=== PATIENT | male | born 1990 | race Caucasian/White ===

== ENCOUNTER 2020-07-10 17:10 | Inpatient (IN) | payer SELFPAY ==
[~2020-07-10] VITALS: Ht 167 cm; Wt 59.0 kg
[2020-07-10] MEDS ORDERED: cefTRIAXone FOR IV USE 1,000 MG in WATER (STERILE) FOR INJECTION 10 ML IV ONE (17:45)
[2020-07-10] MEDS ORDERED: VANCOMYCIN INJECTION 1,000 MG in NS (IVPB) 250 ML IV ONE (17:45)
[2020-07-10] MEDS ORDERED: KETOROLAC 30 MG/ML VIAL IVP ONE (17:45)
[2020-07-10] MEDS ORDERED: morphine INJ 10 MG/ML 1ML (SYR OR VIAL) IVP STA (17:45)
[2020-07-10] MEDS ORDERED: NS IV 1000 ML 1,000 ML IV SCH (17:45)
[2020-07-10 17:48] LABS: BASOPHILS % (AUTO) 0 % (0-10); EOSINOPHILS # (AUTO) 0.2 10^3/uL (0.0-0.3); EOSINOPHILS % (AUTO) 1 % (0-10); HEMATOCRIT 40 % (40-54); HEMOGLOBIN 13.6 g/dL (13.3-17.7); LYMPHOCYTES # (AUTO) 1.4 10^3/uL (1.0-4.0); LYMPHOCYTES % (AUTO) 12 % (12-44); MEAN CORPUSCULAR HEMOGLOBIN 29 pg (25-34); MEAN CORPUSCULAR HGB CONC 34 g/dL (32-36); MEAN CORPUSCULAR VOLUME 87 fL (80-99); MEAN PLATELET VOLUME 10.7 fL (9.0-12.2); MONOCYTES # (AUTO) 0.7 10^3/uL (0.0-1.0); MONOCYTES % (AUTO) 6 % (0-12); NEUTROPHILS # (AUTO) 9.7 10^3/uL (1.8-7.8); NEUTROPHILS % (AUTO) 81 % (42-75); PLATELET COUNT 150 10^3/uL (130-400); WHITE BLOOD COUNT 12.1 10^3/uL (4.3-11.0)
--- NOTE | 2020-07-10 17:53 | ED Integumentary General ---
General Chief Complaint: Skin/Wound Problems Stated Complaint: CELLULITIS R ARM Source: patient Exam Limitations: no limitations History of Present Illness Date Seen by Provider: Jul 10, 2020 Time Seen by Provider: 17:12 Initial Comments To ER with reports of cellulitis to the right arm. He is an IV drug user (methamphetamine) but states he has not injected at this site. History of hepatitis C. This involves the proximal right forearm. He injects IV metham phetamine. He was seen at [facility] yesterday and admitted on at least vancomycin but he states "they treated me horribly". So he signed out last night. He states that they did an ultrasound looking for any fluid collection and there was no pus. He states that they did a ultrasound to rule out DVT of the arm and he believes that was negative but he is not sure. He does not have a local physician. Timing/Duration: week, getting worse Severity: moderate Associated Symptoms: denies symptoms Allergies and Home Medications Allergies Coded Allergies: No Known Drug Allergies (Unverified , 07/10/20) Patient Home Medication List Home Medication List Reviewed: Yes Review of Systems Review of Systems Constitutional: see HPI, chills EENTM: see HPI Respiratory: no symptoms reported Cardiovascular: no symptoms reported Genitourinary: no symptoms reported Musculoskeletal: no symptoms reported Skin: no symptoms reported Psychiatric/Neurological: No Symptoms Reported Endocrine: No Symptoms Reported Physical Exam Vital Signs Capillary Refill : General Appearance: WD/WN, no apparent distress HEENT: PERRL/EOMI, normal ENT inspection Cardiovascular: no murmur, tachycardia (Rate of 120) Respiratory: no respiratory distress, no accessory muscle use Neurologic/Psychiatric: alert, normal mood/affect Skin: normal color, warm/dry Skin Problem Location: upper extremities Skin Problem Character: erythema, other (Erythema of the vulvar and proximal aspect of the forearm. Quite a bit of cellulitis here no fluctuance. the entire forearm is swollen but only the volar aspect is erythematous.) Progress/Results/Core Measures Results/Orders Lab Results Laboratory Tests Test 07/10/20 17:35 Range/Units White Blood Count 12.1 H 4.3-11.0 10^3/uL Red Blood Count 4.62 4.30-5.52 10^6/uL Hemoglobin 13.6 13.3-17.7 g/dL Hematocrit 40 40-54 % Mean Corpuscular Volume 87 80-99 fL Mean Corpuscular Hemoglobin 29 25-34 pg Mean Corpuscular Hemoglobin Concent 34 32-36 g/dL Red Cell Distribution Width 11.9 10.0-14.5 % Platelet Count 150 130-400 10^3/uL Mean Platelet Volume 10.7 9.0-12.2 fL Immature Granulocyte % (Auto) 1 % Neutrophils (%) (Auto) 81 H 42-75 % Lymphocytes (%) (Auto) 12 12-44 % Monocytes (%) (Auto) 6 0-12 % Eosinophils (%) (Auto) 1 0-10 % Basophils (%) (Auto) 0 0-10 % Neutrophils # (Auto) 9.7 H 1.8-7.8 10^3/uL Lymphocytes # (Auto) 1.4 1.0-4.0 10^3/uL Monocytes # (Auto) 0.7 0.0-1.0 10^3/uL Eosinophils # (Auto) 0.2 0.0-0.3 10^3/uL Basophils # (Auto) 0.0 0.0-0.1 10^3/uL Immature Granulocyte # (Auto) 0.1 0.0-0.1 10^3/uL Prothrombin Time 12.8 12.2-14.7 SEC INR Comment 0.9 0.8-1.4 Sodium Level 136 135-145 MMOL/L Potassium Level 3.4 L 3.6-5.0 MMOL/L Chloride Level 101 98-107 MMOL/L Carbon Dioxide Level 26 21-32 MMOL/L Anion Gap 9 5-14 MMOL/L Blood Urea Nitrogen 5 L 7-18 MG/DL Creatinine 0.81 0.60-1.30 MG/DL Estimat Glomerular Filtration Rate > 60 BUN/Creatinine Ratio 6 Glucose Level 116 H 70-105 MG/DL Calcium Level 8.9 8.5-10.1 MG/DL Corrected Calcium 9.0 8.5-10.1 MG/DL Total Bilirubin 0.9 0.1-1.0 MG/DL Aspartate Amino Transf (AST/SGOT) 23 5-34 U/L Alanine Aminotransferase (ALT/SGPT) 49 0-55 U/L Alkaline Phosphatase 49 40-136 U/L Total Protein 7.2 6.4-8.2 GM/DL Albumin 3.9 3.2-4.5 GM/DL My Orders Orders - MERLE KILPATRICK APRN Cbc With Automated Diff (07/10/20 17:33) Comprehensive Metabolic Panel (07/10/20 17:33) Protime With Inr (07/10/20 17:33) Blood Culture (07/10/20 17:33) Lactic Acid Analyzer (07/10/20 17:33) Ns Iv 1000 Ml (Sodium Chloride 0.9%) (07/10/20 17:45) Ceftriaxone For Iv Use (Rocephin For I (07/10/20 17:45) Vancomycin Injection (Vancomycin Injecti (07/10/20 17:45) Ketorolac Injection (Toradol Injection) (07/10/20 17:45) Morphine Injection (Morphine Injection (07/10/20 17:45) Magnesium (07/10/20 18:20) Medications Given in ED Current Medications Medications Dose Ordered Sig/Roberth Route Start Time Stop Time Status Last Admin Dose Admin Ketorolac Tromethamine 15 mg ONCE ONCE IVP 07/10/20 17:45 07/10/20 17:46 DC 07/10/20 17:50 15 MG Departure Communication (Admissions) I spoke with Dr. Jamison, we will admit on Rocephin and vancomycin and consult surgery. Impression Primary Impression: Cellulitis of right arm Disposition: ADMITTED INPATIENT Condition: Stable Admissions Decision to Admit Reason: Admit from ER (General) Decision to Admit/Date: Jul 10, 2020 Time/Decision to Admit Time: 18:21 Departure-Patient Inst. Referrals: NO,LOCAL PHYSICIAN (PCP/Family) Primary Care Physician MERLE KILPATRICK APRN Jul 10, 2020 17:53
[2020-07-10 18:06] LABS: ALBUMIN 3.9 GM/DL (3.2-4.5)
[2020-07-10 18:07] LABS: CHLORIDE 101 MMOL/L (98-107); POTASSIUM 3.4 MMOL/L (3.6-5.0); SODIUM 136 MMOL/L (135-145)
[2020-07-10 18:08] LABS: CALCIUM 8.9 MG/DL (8.5-10.1)
[2020-07-10 18:09] LABS: GLUCOSE 116 MG/DL (70-105); INR 0.9 (0.8-1.4); PROTHROMBIN TIME PATIENT 12.8 SEC (12.2-14.7); TOTAL PROTEIN 7.2 GM/DL (6.4-8.2)
[2020-07-10 18:10] LABS: CARBON DIOXIDE 26 MMOL/L (21-32)
[2020-07-10 18:11] LABS: BILIRUBIN,TOTAL 0.9 MG/DL (0.1-1.0)
[2020-07-10 18:12] LABS: ALKALINE PHOSPHATASE 49 U/L (40-136)
[2020-07-10 18:13] LABS: CREATININE SERUM 0.81 MG/DL (0.60-1.30); GFR ESTIMATED > 60
[2020-07-10 18:14] LABS: BUN/CREATININE RATIO 6
[2020-07-10 18:16] LABS: ALANINE AMINOTRANSFERASE 49 U/L (0-55)
[2020-07-10 19:30] VITALS: BP 119/72
--- NOTE | 2020-07-10 19:51 | Consultation - Surgery ---
History of Present Illness History of Present Illness Patient Consulted On(josselyn/time) 07/10/20 19:45 Time Seen by Provider: 18:52 History of Present Illness Surgery asked to consult regarding right arm cellulitis r/o abscess. HPI per ED: To ER with reports of cellulitis to the right arm. He is an IV drug user (methamphetamine) but states he has not injected at this site. History of hepatitis C. This involves the proximal right forearm. He injects IV methamphetamine. He was seen at [facility] yesterday and admitted on at least vancomycin but he states "they treated me horribly". So he signed out last night. He states that they did an ultrasound looking for any fluid collection and there was no pus. He states that they did a ultrasound to rule out DVT of the arm and he believes that was negative but he is not sure. He does not have a local physician. Timing/Duration: week, getting worse Severity: moderate Associated Symptoms: denies symptoms When I spoke to pt he states the same thing happned to his hand (also right arm); "came up as a pimple and then turned into MRSA". He thinks "the knot on my arm is bigger than yesterday". Rating the pain as a 5 out of 10, sharp and radiating up and down the arm. Allergies and Home Medications Allergies Coded Allergies: No Known Drug Allergies (Unverified , 07/10/20) Patient Home Medication List Home Medication List Reviewed: Yes Past Eiasmem-Ubqhnp-Txcgeh Hx Patient Social History Drug of Choice: METH IV Smoking Status: Current Everyday Smoker Type Used: Electronic/Vapor Recent Hopitalizations: Yes ([place] LAST NIGHT) Surgeries History of Surgeries: Yes Surgeries: Appendectomy Respiratory History of Respiratory Disorde: No Cardiovascular History of Cardiac Disorders: No Neurological History of Neurological Disord: No Genitourinary History of Genitourinary Disor: No Gastrointestinal History of Gastrointestinal Di: No Musculoskeletal History of Musculoskeletal Dis: No Endocrine History of Endocrine Disorders: No HEENT History of HEENT Disorders: No Cancer History of Cancer: No Psychosocial History of Psychiatric Problem: No Integumentary History of Skin or Integumenta: Yes (MRSA) Blood Transfusions History of Blood Disorders: No Family Medical History Significant Family History: Heart Disease (Mother's side), Cancer (Brain and Lung) Review of Systems-General Constitutional: No chills, No diaphoresis; fever EENTM: No blurred vision, No double vision, No mouth pain, No mouth swelling, No epistaxis Respiratory: No cough, No dyspnea on exertion, No short of breath Cardiovascular: No chest pain, No edema, No palpitations Gastrointestinal: No abdominal pain, No jaundice, No nausea, No vomiting Genitourinary: No dysuria, No frequency, No hematuria Musculoskeletal: joint pain, joint swelling, muscle pain, muscle stiffness, muscle cramps Skin: change in color, other (hx of MRSA right hand) Psychiatric/Neurological: Denies Anxiety, Denies Depressed, Denies Seizure, Denies Tremors Other Pt denies any hx of abnormal bleeding or bruising Physical Exam-General Problems Physical Exam Vital Signs Vital Signs - First Documented 07/10/20 17:19 Temp 37.2 Pulse 122 Resp 20 B/P (MAP) 142/95 (111) Pulse Ox 97 O2 Delivery Room Air Capillary Refill : Less Than 3 Seconds General Appearance: WD/WN, no apparent distress Eyes: Bilateral Eye PERRL, Bilateral Eye EOMI HEENT: pharynx normal; No scleral icterus (R), No scleral icterus (L), No pale conjunctivae (R), No pale conjunctivae (L) Neck: full range of motion, supple, normal inspection Respiratory: chest non-tender, lungs clear, normal breath sounds, no respiratory distress, no accessory muscle use Cardiovascular: no murmur, tachycardia Gastrointestinal: normal bowel sounds, non tender, soft, no organomegaly, no pulsatile mass Rectal: deferred Back: no CVA tenderness, no vertebral tenderness Extremities: no pedal edema, no calf tenderness, normal capillary refill, other (RUE has large area of swelling and erythema; starting below AC fossa and going above, no fluctuance) Neurologic/Psychiatric: dry chain puller II-XII nml as tested, alert, normal mood/affect, oriented x 3 Skin: normal color (except RUE), warm/dry, tattoos/piercings Lymphatic: no adenopathy (neck, supraclavicular, groin), axilla node tender (R) Data Review Labs Laboratory Tests 07/10/20 17:35: White Blood Count 12.1H, Red Blood Count 4.62, Hemoglobin 13.6, Hematocrit 40, Mean Corpuscular Volume 87, Mean Corpuscular Hemoglobin 29, Mean Corpuscular Hemoglobin Concent 34, Red Cell Distribution Width 11.9, Platelet Count 150, Mean Platelet Volume 10.7, Immature Granulocyte % (Auto) 1, Neutrophils (%) (Auto) 81H, Lymphocytes (%) (Auto) 12, Monocytes (%) (Auto) 6, Eosinophils (%) (Auto) 1, Basophils (%) (Auto) 0, Neutrophils # (Auto) 9.7H, Lymphocytes # (Auto) 1.4, Monocytes # (Auto) 0.7, Eosinophils # (Auto) 0.2, Basophils # (Auto) 0.0, Immature Granulocyte # (Auto) 0.1, Prothrombin Time 12.8, INR Comment 0.9, Sodium Level 136, Potassium Level 3.4L, Chloride Level 101, Carbon Dioxide Level 26, Anion Gap 9, Blood Urea Nitrogen 5L, Creatinine 0.81, Estimat Glomerular Filtration Rate > 60, BUN/Creatinine Ratio 6, Glucose Level 116H, Lactic Acid Level 1.09, Calcium Level 8.9, Corrected Calcium 9.0, Magnesium Level 1.7, Total Bilirubin 0.9, Aspartate Amino Transf (AST/SGOT) 23, Alanine Aminotransferase (ALT/SGPT) 49, Alkaline Phosphatase 49, Total Protein 7.2, Albumin 3.9 Assessment/Plan Assessment/Plan Assessment/Plan Cellulitis vs. Abscess Hx of MRSA IVDA Pt needs IV ABX, pain control and monitor Right arm; will order CT of RUE for tomorrow morning to reasses. Pt may need to go to the OR for I&D with packing and debridement. DILSHAD ENRIQUEZ DO Jul 10, 2020 19:51
[2020-07-10] MEDS: NS IV 1000 ML 1,000 ML IV SCH (20:41)
[2020-07-10] MEDS: ENOXAPARIN 40 MG/0.4 ML (LOVENOX) SYR SC SCH (20:41)
[2020-07-10] MEDS: morphine INJ 4 MG/ML 1 ML (VIAL/SYRINGE) IVP PRN (20:42)
[2020-07-10 23:22] VITALS: BP 120/71
[2020-07-11] MEDS: morphine INJ 4 MG/ML 1 ML (VIAL/SYRINGE) IVP PRN ×4 (03:59→20:58)
[2020-07-11] MEDS: ACETAMINOPHEN 325 MG TABLET PO PRN ×2 (04:02→16:24)
[2020-07-11 04:03] VITALS: BP 122/84
[2020-07-11] MEDS ORDERED: NS (IVPB) 250 ML ONE (04:30)
[2020-07-11] MEDS ORDERED: VANCOMYCIN 750 MG/VIAL IV ONE (04:30)
[2020-07-11 04:57] LABS: BASOPHILS % (AUTO) 0 % (0-10); EOSINOPHILS # (AUTO) 0.2 10^3/uL (0.0-0.3); EOSINOPHILS % (AUTO) 2 % (0-10); HEMATOCRIT 37 % (40-54); LYMPHOCYTES # (AUTO) 1.6 10^3/uL (1.0-4.0); LYMPHOCYTES % (AUTO) 16 % (12-44); MEAN CORPUSCULAR HEMOGLOBIN 29 pg (25-34); MEAN CORPUSCULAR HGB CONC 33 g/dL (32-36); MEAN CORPUSCULAR VOLUME 88 fL (80-99); MEAN PLATELET VOLUME 10.8 fL (9.0-12.2); MONOCYTES # (AUTO) 0.7 10^3/uL (0.0-1.0); MONOCYTES % (AUTO) 7 % (0-12); NEUTROPHILS # (AUTO) 7.9 10^3/uL (1.8-7.8); NEUTROPHILS % (AUTO) 75 % (42-75); PLATELET COUNT 146 10^3/uL (130-400); WHITE BLOOD COUNT 10.5 10^3/uL (4.3-11.0)
[2020-07-11 05:13] LABS: CHLORIDE 104 MMOL/L (98-107); POTASSIUM 3.9 MMOL/L (3.6-5.0); SODIUM 135 MMOL/L (135-145)
[2020-07-11 05:15] LABS: GLUCOSE 102 MG/DL (70-105)
[2020-07-11 05:17] LABS: CARBON DIOXIDE 22 MMOL/L (21-32)
[2020-07-11 05:19] LABS: CREATININE SERUM 0.75 MG/DL (0.60-1.30); GFR ESTIMATED > 60
[2020-07-11 05:20] LABS: BUN/CREATININE RATIO 9
[2020-07-11] MEDS: VANCOMYCIN 750 MG/NS 250 ML IVPB IV SCH ×4 (06:10→18:20)
[2020-07-11] MEDS: NS IV 1000 ML 1,000 ML IV SCH ×3 (06:25→20:58)
[2020-07-11] MEDS: KCL 20 MEQ TAB (K-DUR) PO SCH (06:25)
[2020-07-11 07:53] VITALS: BP 119/83
[2020-07-11] MEDS ORDERED: CATHETER FLUSH 10 ML SYR IV PRN (08:15)
[2020-07-11] MEDS ORDERED: NS 100 ML (IVPB) BAG IV ONE (08:15)
[2020-07-11] MEDS ORDERED: HOLD METFORMIN - RECEIVED CONTRAST 20 ML VIAL IV SCH (08:15)
[2020-07-11] MEDS ORDERED: IOHEXOL 350 MG/ML 100 ML (OMNIPAQUE 350) VIAL IV ONE (08:15)
--- NOTE | 2020-07-11 09:41 | Diagnostic Imaging Report ---
PROCEDURE: CT right upper extremity with contrast. TECHNIQUE: Axial images were obtained through the right upper extremity after intravenous contrast and reformatted into coronal and sagittal oblique planes. Auto Exposure Controls were utilized during the CT exam to meet ALARA standards for radiation dose reduction. INDICATION: Right elbow region, cellulitis There is diffuse subcutaneous edema which is most pronounced along the medial aspect of the upper arm and elbow with extension into the forearm. There is heterogeneous density which may represent developing phlegmon within the antecubital fossa. This region measures approximately 4.9 x 3.8 x 8 cm. No well-defined walled fluid collection is identified. There appears to be thrombosis of the antecubital vein in this region. There may be mild edema and/or inflammation in the adjacent musculature. No bone destruction is identified. There is no definite elbow joint fluid present. IMPRESSION: Probable thrombophlebitis and associated cellulitis in the antecubital fossa. There is likely associated myositis as well however no walled fluid collection is seen for drainage. There may be developing phlegmon with thrombosis of the involved antecubital vein. No osteomyelitis or joint effusion is seen. Dictated by: Dictated on workstation # [id number]
--- NOTE | 2020-07-11 10:12 | Progress Note - Surgery ---
ANGELITO ABDULLAHI MED STUDENT 07/11/20 1012: Subjective Date Seen by a Provider: Jul 11, 2020 Time Seen by a Provider: 07:55 Subjective/Events-last exam Patient is awake and sitting up in bed this morning. States that R arm hurts, about 7 or 8, describes as throbbing, no radiation. He has not had anything to eat, no nausea or vomiting. LBM yesterday. Was taken to CT, showed no walled fluid filled structure to drain. States he does have a headache and fever this morning. Wants to know if something will be done with his arm today. Erythema has receded since yesterday Review of Systems General: Chills, Malaise HEENT: Head Aches; No Visual Changes Pulmonary: No Dyspnea, No Cough Cardiovascular: No: Chest Pain, Palpitations Gastrointestinal: No: Nausea, Vomiting, Abdominal Pain, Diarrhea, Constipation Genitourinary: No Dysuria, No Hematuria Musculoskeletal: arm pain (RUE); No: leg pain Focused Exam Lactate Level 07/10/20 17:35: Lactic Acid Level 1.09 Objective Exam Vital Signs Date Time Temp Pulse Resp B/P (MAP) Pulse Ox O2 Delivery O2 Flow Rate FiO2 07/11/20 07:53 36.7 92 20 119/83 (95) 98 Room Air 07/11/20 04:30 37.2 07/11/20 04:03 37.8 110 20 122/84 (97) 99 Room Air 07/11/20 04:02 37.8 07/10/20 23:22 37.0 99 20 120/71 (87) 97 Room Air 07/10/20 19:30 Room Air 07/10/20 19:30 36.8 100 22 119/72 (88) 97 Room Air 07/10/20 18:50 100 18 132/88 97 07/10/20 17:19 37.2 122 20 142/95 (111) 97 Room Air I & O 07/11/20 07:00 Intake Total 3417.5 ml Output Total 0 ml Balance 3417.5 ml Capillary Refill : Less Than 3 Seconds General Appearance: No Apparent Distress Respiratory: Chest Non Tender, Lungs Clear, Normal Breath Sounds, No Accessory Muscle Use, No Respiratory Distress Cardiovascular: Regular Rate, Rhythm, No Edema, No Murmur Peripheral Pulses: 2+ Radial Pulses (R), 2+ Radial Pulses (L) Gastrointestinal: normal bowel sounds, non tender, soft Extremity: No Calf Tenderness, No Pedal Edema, Other (RUE erythematous and swollen in antecubital region, receding, very tender to touch) Neurologic/Psychiatric: Alert, Oriented x3 Skin: Normal Color, Warm/Dry Results Lab Laboratory Tests 07/10/20 17:35: White Blood Count 12.1H, Red Blood Count 4.62, Hemoglobin 13.6, Hematocrit 40, Mean Corpuscular Volume 87, Mean Corpuscular Hemoglobin 29, Mean Corpuscular Hemoglobin Concent 34, Red Cell Distribution Width 11.9, Platelet Count 150, Mean Platelet Volume 10.7, Immature Granulocyte % (Auto) 1, Neutrophils (%) (Auto) 81H, Lymphocytes (%) (Auto) 12, Monocytes (%) (Auto) 6, Eosinophils (%) (Auto) 1, Basophils (%) (Auto) 0, Neutrophils # (Auto) 9.7H, Lymphocytes # (Auto) 1.4, Monocytes # (Auto) 0.7, Eosinophils # (Auto) 0.2, Basophils # (Auto) 0.0, Immature Granulocyte # (Auto) 0.1, Prothrombin Time 12.8, INR Comment 0.9, Sodium Level 136, Potassium Level 3.4L, Chloride Level 101, Carbon Dioxide Level 26, Anion Gap 9, Blood Urea Nitrogen 5L, Creatinine 0.81, Estimat Glomerular Filtration Rate > 60, BUN/Creatinine Ratio 6, Glucose Level 116H, Lactic Acid Level 1.09, Calcium Level 8.9, Corrected Calcium 9.0, Magnesium Level 1.7, Total Bilirubin 0.9, Aspartate Amino Transf (AST/SGOT) 23, Alanine Aminotransferase (ALT/SGPT) 49, Alkaline Phosphatase 49, Total Protein 7.2, Albumin 3.9 07/11/20 04:35: White Blood Count 10.5, Red Blood Count 4.15L, Hemoglobin 12.0L, Hematocrit 37L, Mean Corpuscular Volume 88, Mean Corpuscular Hemoglobin 29, Mean Corpuscular Hemoglobin Concent 33, Red Cell Distribution Width 11.8, Platelet Count 146, Mean Platelet Volume 10.8, Immature Granulocyte % (Auto) 1, Neutrophils (%) (Auto) 75, Lymphocytes (%) (Auto) 16, Monocytes (%) (Auto) 7, Eosinophils (%) (Auto) 2, Basophils (%) (Auto) 0, Neutrophils # (Auto) 7.9H, Lymphocytes # (Auto) 1.6, Monocytes # (Auto) 0.7, Eosinophils # (Auto) 0.2, Basophils # (Auto) 0.0, Immature Granulocyte # (Auto) 0.1, Sodium Level 135, Potassium Level 3.9, Chloride Level 104, Carbon Dioxide Level 22, Anion Gap 9, Blood Urea Nitrogen 7, Creatinine 0.75, Estimat Glomerular Filtration Rate > 60, BUN/Creatinine Ratio 9, Glucose Level 102, Calcium Level 8.0L Assessment/Plan Assessment/Plan Assessment/Plan Cellulitis vs. Abscess -CT shows no walled abcess, Erythema receding -No need to take to OR -Continue ABX, pain medications, Keep area clean -Continue to watch for signs of worsening infection or cyst -Leukocytosis improved today Hx of MRSA IVDA NITO COWAN DO 07/11/20 1442: Subjective Time Seen by a Provider: 12:25 Subjective/Events-last exam Pt seen and examined, states he thinks pain is a little better but not much. Review of Systems General: Chills, Malaise HEENT: Head Aches; No Visual Changes Pulmonary: No Dyspnea, No Cough Cardiovascular: No: Chest Pain, Palpitations Gastrointestinal: No: Nausea, Vomiting, Abdominal Pain, Diarrhea, Constipation Musculoskeletal: arm pain (RUE) Objective Exam General Appearance: No Apparent Distress, WD/WN Respiratory: Chest Non Tender, Lungs Clear, Normal Breath Sounds, No Accessory Muscle Use, No Respiratory Distress Cardiovascular: Regular Rate, Rhythm, No Murmur Peripheral Pulses: 2+ Radial Pulses (R), 2+ Radial Pulses (L) Gastrointestinal: normal bowel sounds, non tender, soft Extremity: No Calf Tenderness, No Pedal Edema, Other (RUE erythematous and swollen in antecubital region, receding, very tender to touch. R arm twice the size of lef) Assessment/Plan Assessment/Plan Assessment/Plan Cellulitis vs. Abscess -CT shows no walled abcess, Erythema receding -No need at this time to take to OR, no definitive abscess -Continue ABX, pain medications, Keep area clean, elevate arm -Continue to watch for signs of worsening infection -Leukocytosis improved today Hx of MRSA IVDA Supervisory-Addendum Brief Verification & Attestation Participated in pt care: history, MDM, physical Personally performed: exam, history, MDM Care discussed with: Medical Student Procedures: n/a Verification and Attestation of Medical Student E/M Service A medical student performed and documented this service. I then reviewed and verified all information documented by the medical student and made modifications to such information, when appropriate. I personally performed a physical exam, medical decision making and then discussed any differences between the notes and made revisions as necessary to create one note. Nito Cowan , 07/11/20 , 14:42 ANGELITO ABDULLAHI MED STUDENT Jul 11, 2020 10:12 NITO COWAN DO Jul 11, 2020 14:42
[2020-07-11 11:52] VITALS: BP 122/76
--- NOTE | 2020-07-11 13:16 | History & Physical-Hospitalist ---
History of Present Illness HPI/Chief Complaint Pt is a 30yoCM with a PMH of Hepatits C, IV meth use and recurrent MRSA infection who presented to the ER due to right arm infection. He states he was in [place] recently and left AMA because they treated him "horribly" and his infection continued to worsen prompting him to seek evaluation here. He states he still has pain in his right arm and feels terrible. He also complains about a headache that he has had for 4 days. He normally drinks a lot of pop but hasn't had any. Denies any cuts, bug bite, or other sources of infection when specifically asked but when asking about MRSA decolinizatino process he discloses that he got a tattoo his arm just under the area of erythema and infection 2 days prior to this starting. Source: patient Date Seen 07/11/20 Time Seen by a Provider: 13:11 Attending Physician Dino Wheatley MD PCP No,Local Physician Referring Physician Date of Admission Jul 10, 2020 at 18:21 Home Medications & Allergies Home Medications Reviewed patient Home Medication Reconciliation performed by pharmacy medication reconciliations air traffic systems technician and/or nursing. Patients Allergies have been reviewed. Allergies Allergies Coded Allergies No Known Drug Allergies (Unverified07/10/20) Past Tzuauhd-Bvcmnj-Cflqga Hx Past Med/Social Hx: Reviewed Nursing Past Med/Soc Hx Patient Social History Alcohol Use: Rarely Uses Recreational Drug Use: Yes Drug of Choice: METH IV Smoking Status: Current Everyday Smoker Type Used: Electronic/Vapor Recent Foreign Travel: No Contact w/other who traveled: No Recent Hopitalizations: Yes ([place] LAST NIGHT) Recent Infectious Disease Expo: No Past Medical History Surgeries: Appendectomy Gastrointestinal: Hepatitis (Hepatitis C) History of Blood Disorders: No Family History Reviewed Nursing Family Hx Heart Disease (Mother's side), Cancer (Brain and Lung) Review of Systems Constitutional: fever EENTM: no symptoms reported Respiratory: No cough, No short of breath Cardiovascular: No chest pain, No palpitations Gastrointestinal: No abdominal pain, No nausea, No vomiting Genitourinary: no symptoms reported Musculoskeletal: see HPI Skin: see HPI Psychiatric/Neurological: Headache; Denies Numbness, Denies Paresthesia, Denies Tingling, Denies Weakness Physical Exam Physical Exam Vital Signs Vital Signs - First Documented 07/10/20 17:19 Temp 37.2 Pulse 122 Resp 20 B/P (MAP) 142/95 (111) Pulse Ox 97 O2 Delivery Room Air Capillary Refill : Less Than 3 Seconds Height, Weight, BMI Height: '" Weight: lbs. oz. kg; 21.15 BMI Method: General Appearance: No Apparent Distress, WD/WN, Other (SO laying in bed with patient) HEENT: PERRL/EOMI, Moist Mucous Membranes; No Scleral Icterus (L), No Scleral Icterus (R) Results Results/Procedures Labs Laboratory Tests 07/10/20 17:35 07/11/20 04:35 Patient resulted labs reviewed. Imaging: Reviewed Imaging Report Imaging [facility], [place] NAME: NOAH LEE III [facility] REC#: [id number] PT STATUS: ADM IN : 1990 PHYSICIAN: DILSHAD ENRIQUEZ DO ADMIT DATE: 07/10/20 Signed Date of Exam:07/11/20 CT EXTREMITY UPPER RIGHT W PROCEDURE: CT right upper extremity with contrast. TECHNIQUE: Axial images were obtained through the right upper extremity after intravenous contrast and reformatted into coronal and sagittal oblique planes. Auto Exposure Controls were utilized during the CT exam to meet ALARA standards for radiation dose reduction. INDICATION: Right elbow region, cellulitis There is diffuse subcutaneous edema which is most pronounced along the medial aspect of the upper arm and elbow with extension into the forearm. There is heterogeneous density which may represent developing phlegmon within the antecubital fossa. This region measures approximately 4.9 x 3.8 x 8 cm. No well-defined walled fluid collection is identified. There appears to be thrombosis of the antecubital vein in this region. There may be mild edema and/or inflammation in the adjacent musculature. No bone destruction is identified. There is no definite elbow joint fluid present. IMPRESSION: Probable thrombophlebitis and associated cellulitis in the antecubital fossa. There is likely associated myositis as well however no walled fluid collection is seen for drainage. There may be developing phlegmon with thrombosis of the involved antecubital vein. No osteomyelitis or joint effusion is seen. Dictated by: Dictated on workstation # [id number] Dict: 07/11/20 0930 Trans: 07/11/20 1004 CVB [id number] Interpreted by: KAUSHIK SERNA MD Electronically signed by: KAUSHIK SERNA MD 07/11/20 1004 Assessment/Plan Admission Diagnosis Cellulitis Admission Status: Inpatient Order (span 2 midnights) Reason for Inpatient Admission: see below Assessment and Plan Sepsis, POA Cellulitis Tachycardiac with leukocytosis in ER Leukocytosis resolved this AM Continue on IV abx Surgery consulted, appreciate recs No abscess since on imaging Has sensation and good pulse in right wrist, no current evidence of compartment syndrome IV meth use Hepatitis C Recommend cessation Will need outpatient hepatology follow up Headache Excedrin prn as likely due to caffeine withdrawal DINO WHEATLEY MD Jul 11, 2020 13:16
[2020-07-11 16:00] VITALS: BP 110/68
[2020-07-11] MEDS: LACTOBACILLUS ACIDOPHILUS (PROBIOTIC) CAPSULE PO SCH (16:23)
[2020-07-11] MEDS: cefTRIAXone 1,000 MG/SWFI 10 ML IV PUSH IV SCH ×2 (16:25)
[2020-07-11] MEDS: IBUPROFEN 600 MG (MOTRIN) TAB PO PRN (19:30)
[2020-07-11 20:24] VITALS: BP 111/82
[2020-07-11] MEDS: ENOXAPARIN 40 MG/0.4 ML (LOVENOX) SYR SC SCH (20:58)
[2020-07-11 23:21] VITALS: BP 119/71
[2020-07-12 03:41] VITALS: BP 115/74
[2020-07-12] MEDS: NS IV 1000 ML 1,000 ML IV SCH ×3 (04:45→21:03)
[2020-07-12] MEDS: morphine INJ 4 MG/ML 1 ML (VIAL/SYRINGE) IVP PRN ×5 (04:46→21:03)
[2020-07-12] MEDS ORDERED: TROUGH ORDER-PHARMACY XX NR (05:00)
[2020-07-12] MEDS ORDERED: VANCOMYCIN 1000 MG/VIAL ONE (05:55)
[2020-07-12] MEDS ORDERED: NS (IVPB) 250 ML ONE (05:55)
[2020-07-12] MEDS ORDERED: VANCOMYCIN 1 GM/NS 250 ML IVPB IV SCH ×2 (06:00)
[2020-07-12] MEDS: KCL 20 MEQ TAB (K-DUR) PO SCH (06:06)
[2020-07-12 08:07] VITALS: BP 101/68
[2020-07-12] MEDS: LACTOBACILLUS ACIDOPHILUS (PROBIOTIC) CAPSULE PO SCH ×3 (08:09→17:52)
--- NOTE | 2020-07-12 09:12 | Progress Note - Surgery ---
ANGELITO ABDULLAHI MED STUDENT 07/12/20 0912: Subjective Date Seen by a Provider: Jul 12, 2020 Time Seen by a Provider: 07:15 Subjective/Events-last exam Patient is awake and sitting up in bed. States the pain in his arm is a bit worse today. Rates about a 9, throbbing, starting to radiate up the arm a bit. Swelling seems to have gotten a bit worse. Erythema doesn't really look like it has receded any since yesterday, although WBC is down. States he had a bit of a fever last night but that's a little better this morning. No nausea or vomiting. LBM was last night. Ambulating with no difficulty. Review of Systems General: Chills (Last night, subsided mostly this morning), Malaise HEENT: No Head Aches, No Visual Changes Pulmonary: No Dyspnea, No Cough Cardiovascular: No: Chest Pain, Palpitations Gastrointestinal: No: Nausea, Vomiting, Abdominal Pain Genitourinary: No Dysuria, No Hematuria Musculoskeletal: arm pain (R arm, little bit worse than yesterday) Focused Exam Lactate Level 07/10/20 17:35: Lactic Acid Level 1.09 Objective Exam Vital Signs Date Time Temp Pulse Resp B/P (MAP) Pulse Ox O2 Delivery O2 Flow Rate FiO2 07/12/20 08:07 36.7 94 18 101/68 (79) 99 Room Air 07/12/20 08:00 Room Air 07/12/20 03:41 35.9 91 16 115/74 (88) 98 Room Air 07/11/20 23:21 36.2 82 16 119/71 (87) 98 Room Air 07/11/20 20:27 Room Air 07/11/20 20:24 36.1 78 20 111/82 (92) 97 Room Air 07/11/20 16:54 37.9 07/11/20 16:24 38.2 07/11/20 16:00 38.2 101 24 110/68 (82) 97 Room Air 07/11/20 11:52 36.7 103 20 122/76 (91) 98 Room Air l I & O 07/12/20 07:00 Intake Total 2900 ml Balance 2900 ml Capillary Refill : Less Than 3 Seconds General Appearance: WD/WN, Mild Distress HEENT: No Scleral Icterus (L), No Scleral Icterus (R) Respiratory: Chest Non Tender, Lungs Clear, Normal Breath Sounds, No Accessory Muscle Use, No Respiratory Distress Cardiovascular: Regular Rate, Rhythm, No Murmur Peripheral Pulses: 2+ Radial Pulses (R), 2+ Radial Pulses (L) Gastrointestinal: normal bowel sounds, non tender, soft Extremity: No Calf Tenderness, No Pedal Edema, Other (RUE erythematous and swollen in antecubital region, swelling looks a bit worse. Erythema about the same, very tender to touch. R arm twice the size of lef) Neurologic/Psychiatric: Alert, Oriented x3 Skin: Normal Color, Warm/Dry Results Lab Laboratory Tests 07/12/20 04:50: Vancomycin Level Trough 3.1L Microbiology 07/10/20 Blood Culture - Preliminary, Resulted No growth Assessment/Plan Assessment/Plan Assessment/Plan Cellulitis vs. Abscess -Swelling looks a bit worse today, pain a bit worse, Temperature normal, subjective fever improved -Erythema about the same as yesterday -No need at this time to take to OR, no definitive abscess, continue to monitor, may need a repeat CT if suspicion arises for abscess -Continue ABX, pain medications, Keep area clean, elevate arm -Continue to watch for signs of worsening infection -Leukocytosis improved today Hx of MRSA NITO GARDUNO DO 07/12/205: Subjective Time Seen by a Provider: 19:33 Subjective/Events-last exam Pt seen and examined, states he thinks his arm is worse. Pain a 9 out of 10. Review of Systems General: Chills (Last night, subsided mostly this morning), Malaise HEENT: No Head Aches, No Visual Changes Pulmonary: No Dyspnea, No Cough Cardiovascular: No: Chest Pain, Palpitations Gastrointestinal: No: Nausea, Vomiting, Abdominal Pain Genitourinary: No Dysuria Musculoskeletal: arm pain (R arm, little bit worse than yesterday) Objective Exam General Appearance: WD/WN, Mild Distress Respiratory: Lungs Clear, Normal Breath Sounds, No Accessory Muscle Use, No Respiratory Distress Cardiovascular: Regular Rate, Rhythm, No Murmur Peripheral Pulses: 2+ Radial Pulses (R), 2+ Radial Pulses (L) Gastrointestinal: normal bowel sounds, non tender, soft Extremity: No Calf Tenderness, Other (RUE erythematous and swollen in antecu bital region, swelling looks a bit worse. Erythema about the same, very tender to touch. R arm twice the size of lef) Neurologic/Psychiatric: Alert, Oriented x3 Assessment/Plan Assessment/Plan Assessment/Plan Cellulitis vs. Abscess -Swelling looks a bit worse today, pain a bit worse, Temperature normal, subjective fever improved, Erythema about the same as yesterday -Will order US for AM, may need to take to OR even if no definitive abscess because it is looking worse not better -Continue ABX, pain medications, Keep area clean, elevate arm -Leukocytosis improved today Hx of MRSA IVDA Supervisory-Addendum Brief Verification & Attestation Participated in pt care: history, MDM, physical Personally performed: exam, history, MDM Care discussed with: Medical Student Procedures: n/a Verification and Attestation of Medical Student E/M Service A medical student performed and documented this service. I then reviewed and verified all information documented by the medical student and made modifications to such information, when appropriate. I personally performed a physical exam, medical decision making and then discussed any differences between the notes and made revisions as necessary to create one note. Nito Cowan , 07/12/20 , 21:35 ANGELITO ABDULLAHI MED STUDENT Jul 12, 2020 09:12 NITO COWAN DO Jul 12, 2020 21:35
[2020-07-12 10:45] LABS: BUN/CREATININE RATIO 9; CALCIUM 8.1 MG/DL (8.5-10.1); CARBON DIOXIDE 23 MMOL/L (21-32); CHLORIDE 106 MMOL/L (98-107); CREATININE SERUM 0.85 MG/DL (0.60-1.30); GFR ESTIMATED > 60; GLUCOSE 98 MG/DL (70-105); POTASSIUM 3.8 MMOL/L (3.6-5.0); SODIUM 140 MMOL/L (135-145)
[2020-07-12 11:28] VITALS: BP 128/80
--- NOTE | 2020-07-12 12:15 | Progress Note - Hospitalist ---
Subjective HPI/CC On Admission Date Seen by Provider: Jul 12, 2020 Time Seen by Provider: 12:11 Pt is a 30yoCM with a PMH of Hepatits C, IV meth use and recurrent MRSA infection who presented to the ER due to right arm infection. He states he was in [place] recently and left AMA because they treated him "horribly" and his infection continued to worsen prompting him to seek evaluation here. He states he still has pain in his right arm and feels terrible. He also complains about a headache that he has had for 4 days. He normally drinks a lot of pop but hasn't had any. Denies any cuts, bug bite, or other sources of infection when specifically asked but when asking about MRSA decolinizatino process he discloses that he got a tattoo his arm just under the area of erythema and infection 2 days prior to this starting. Subjective/Events-last exam Pt reports pain still present and he thinks swelling is worse but redness improved. Focused Exam Lactate Level 07/10/20 17:35: Lactic Acid Level 1.09 Objective Exam Vital Signs Vital Signs Date Time Temp Pulse Resp B/P (MAP) Pulse Ox O2 Delivery O2 Flow Rate FiO2 07/12/20 11:28 37.4 97 16 128/80 (96) 97 Room Air Capillary Refill : Less Than 3 Seconds General Appearance: No Apparent Distress, WD/WN Respiratory: Lungs Clear, No Respiratory Distress Cardiovascular: Regular Rate, Rhythm, No Murmur Gastrointestinal: Normal Bowel Sounds, Soft Extremity: Other (right arm with continued edema, erythema improving and within demarcation, 2+ pulse and sensation intact) Neurologic/Psychiatric: Alert, Oriented x3 Results/Procedures Lab Laboratory Tests 07/12/20 04:50 Patient resulted labs reviewed. Imaging: Reviewed Imaging Report Assessment/Plan Assessment and Plan Assess & Plan/Chief Complaint Sepsis, POA Cellulitis Tachycardiac with leukocytosis in ER Leukocytosis resolved this AM Continue on IV abx Surgery consulted, appreciate recs No abscess seen on imaging Sensation and pulse still intact, no pallor, continue to monitor for evidence of compartment syndrome but not consistent with it now IV meth use Hepatitis C Recommend cessation Will need outpatient hepatology follow up social media intern consult Headache Excedrin prn as likely due to caffeine withdrawal DVt ppx: DINO Mckeon MD Jul 12, 2020 12:15
[2020-07-12] MEDS: VANCOMYCIN 750 MG/NS 250 ML IVPB IV SCH ×4 (14:24→21:04)
[2020-07-12 15:35] VITALS: BP 123/78
[2020-07-12] MEDS: IBUPROFEN 600 MG (MOTRIN) TAB PO PRN (17:52)
[2020-07-12] MEDS: cefTRIAXone 1,000 MG/SWFI 10 ML IV PUSH IV SCH ×2 (18:09)
[2020-07-12 20:05] VITALS: BP 126/70
[2020-07-12] MEDS: ENOXAPARIN 40 MG/0.4 ML (LOVENOX) SYR SC SCH (21:04)
[2020-07-13] VITALS (14 sets, daily range): BP systolic 105–149; BP diastolic 63–97
[2020-07-13] MEDS ORDERED: TROUGH ORDER-PHARMACY XX NR (05:00)
[2020-07-13] MEDS: NS IV 1000 ML 1,000 ML IV SCH ×3 (05:44→16:38)
[2020-07-13] MEDS: VANCOMYCIN 750 MG/NS 250 ML IVPB IV SCH ×2 (05:50)
[2020-07-13] MEDS: morphine INJ 4 MG/ML 1 ML (VIAL/SYRINGE) IVP PRN ×4 (08:48→22:44)
--- NOTE | 2020-07-13 09:17 | Diagnostic Imaging Report ---
INDICATION: Right upper extremity arterial Doppler. INDICATION: Redness and swelling. COMPARISON: There are no prior ultrasound examinations available for comparison. The CT right upper extremity exam performed on 07/11/2020 suggested thrombophlebitis and associated cellulitis in the antecubital fossa. There was also felt to be associated myositis. There was no drainable fluid collection identified. FINDINGS: On this exam, there is again edema of the soft tissues of the anterior forearm. There is still no drainable mass or abscess visualized. IMPRESSION: There is edema/inflammation in the soft tissues of the right upper extremity but there is no drainable abscess visualized. Dictated by: Dictated on workstation # [id number]
[2020-07-13] MEDS ORDERED: LACTATED RINGERS 1,000 ML IV PRN ×2 (09:45→13:45)
[2020-07-13] MEDS: LACTOBACILLUS ACIDOPHILUS (PROBIOTIC) CAPSULE PO SCH ×3 (10:51→18:02)
[2020-07-13] MEDS: VANCOMYCIN 1500 MG/NS 500 ML IVPB IV SCH ×4 (11:02→22:44)
[2020-07-13] MEDS: LORazepam INJ 2 MG/ML (ATIVAN) VIAL IVP PRN ×2 (11:53→19:36)
--- NOTE | 2020-07-13 12:25 | Progress Note - Hospitalist ---
Subjective HPI/CC On Admission Date Seen by Provider: Jul 13, 2020 Time Seen by Provider: 09:30 Pt is a 30yoCM with a PMH of Hepatits C, IV meth use and recurrent MRSA infection who presented to the ER due to right arm infection. He states he was in [place] recently and left AMA because they treated him "horribly" and his infection continued to worsen prompting him to seek evaluation here. He states he still has pain in his right arm and feels terrible. He also complains about a headache that he has had for 4 days. He normally drinks a lot of pop but hasn't had any. Denies any cuts, bug bite, or other sources of infection when specifically asked but when asking about MRSA decolinizatino process he discloses that he got a tattoo his arm just under the area of erythema and infection 2 days prior to this starting. Subjective/Events-last exam He reports worsening redness, swelling, and pain and has right arm. He denies any fevers or chills. He has no other complaints or concerns. Focused Exam Lactate Level 07/10/20 17:35: Lactic Acid Level 1.09 Objective Exam Vital Signs Vital Signs Date Time Temp Pulse Resp B/P (MAP) Pulse Ox O2 Delivery O2 Flow Rate FiO2 07/13/20 08:13 36.6 97 16 149/89 (109) 97 Room Air Capillary Refill : Less Than 3 Seconds General Appearance: No Apparent Distress, WD/WN Respiratory: Lungs Clear, Normal Breath Sounds, No Respiratory Distress Cardiovascular: Regular Rate, Rhythm, No Edema, No Murmur Gastrointestinal: Normal Bowel Sounds, Non Tender, Soft Extremity: Inflammation (Right antecubital fossa), Swelling (Right antecubital fossa), Other (Unable to extend right elbow completely) Neurologic/Psychiatric: Alert, Oriented x3 Skin: Rash (Right arm) Results/Procedures Lab Patient resulted labs reviewed. Imaging: Reviewed Imaging Report Assessment/Plan Assessment and Plan Assess & Plan/Chief Complaint Sepsis due to cellulitis Likely left forearm abscess Surgery consulted, appreciate assistance No abscess seen on repeat imaging Continue Vancomycin and Rocephin IV methamphetamine use Hepatitis C Recommend cessation Will need outpatient hepatology follow up director of home health services consult DVT prophylaxis: Lovenox Diagnosis/Problems Diagnosis/Problems (1) Sepsis due to cellulitis Status: Acute (2) IV drug abuse Status: Acute (3) Hepatitis C Status: Acute BARBARA,ROBBY M MD Jul 13, 2020 12:25
[2020-07-13] MEDS ORDERED: LIDOCAINE/EPI 1%-1:100,000 (XYLOCAINE) 20ML ONE (13:22)
[2020-07-13] MEDS ORDERED: proPOfol 200 MG/20 ML (DIPRIVAN) VIAL IV ONE (13:27)
[2020-07-13] MEDS ORDERED: ROCURONIUM 10 MG/ML 5 ML SYRINGE IV ONE (13:28)
[2020-07-13] MEDS ORDERED: SEVOFLURANE (ULTANE) 15 ML INHAL SOLN ONE (13:28)
[2020-07-13] MEDS ORDERED: fentaNYL INJ 100 MCG/2 ML AMP ONE (13:28)
[2020-07-13] MEDS ORDERED: ONDANSETRON 4 MG/2 ML (SDV) Z0FRAN ONE (13:28)
[2020-07-13] MEDS ORDERED: LIDOCAINE PF 2% 5 ML (XYLOCAINE) VIAL ONE (13:28)
[2020-07-13] MEDS ORDERED: MIDAZOLAM 2 MG/2 ML (VERSED) VIAL ONE (13:28)
--- NOTE | 2020-07-13 14:40 | Progress Note - Surgery ---
Subjective Time Seen by a Provider: 14:25 Subjective/Events-last exam Pt seen and examined, states he is not better and pain may be a little worse. Review of Systems General: No Chills, No Night Sweats Pulmonary: No Dyspnea, No Cough Cardiovascular: No: Chest Pain, Palpitations Musculoskeletal: arm pain Focused Exam Lactate Level 07/10/20 17:35: Lactic Acid Level 1.09 Objective Exam Vital Signs Date Time Temp Pulse Resp B/P (MAP) Pulse Ox O2 Delivery O2 Flow Rate FiO2 07/13/20 12:20 36.8 96 18 119/82 (94) 97 Room Air 07/13/20 08:13 36.6 97 16 149/89 (109) 97 Room Air 07/13/20 08:00 Room Air 07/13/20 04:00 36.0 74 20 110/67 (81) 99 Room Air 07/13/20 00:00 36.0 84 20 112/71 (85) 98 Room Air 07/12/20 20:12 Room Air 07/12/20 20:05 36.9 106 20 126/70 (88) 97 Room Air 07/12/20 15:35 37.5 103 16 123/78 (93) 97 Room Air I & O 07/13/20 07:00 Intake Total 4317.0 ml Balance 4317.0 ml Capillary Refill : Less Than 3 Seconds General Appearance: No Apparent Distress, WD/WN HEENT: No Scleral Icterus (L), No Scleral Icterus (R) Respiratory: Lungs Clear, Normal Breath Sounds, No Respiratory Distress Cardiovascular: Regular Rate, Rhythm, No Edema, No Murmur Peripheral Pulses: 2+ Radial Pulses (R), 2+ Radial Pulses (L) Gastrointestinal: normal bowel sounds, non tender, soft Extremity: Inflammation (Right antecubital fossa), Swelling (Right antecubital fossa, looks worse than yesterday), Other (Unable to extend right elbow complet jose ramon, edema above elbow is better than yesterday) Neurologic/Psychiatric: Alert, Oriented x3 Skin: Rash (Right arm) Results Lab Laboratory Tests 07/13/20 05:00: Vancomycin Level Trough 6.6L Microbiology 07/10/20 Blood Culture - Preliminary, Resulted No growth Assessment/Plan Assessment/Plan Assessment/Plan Cellulitis vs. Abscess -Swelling and erythema looks a bit worse today, pain a bit worse but now all seems to be collecting just below Right AC fossa -Discussed options 1) continue IV ABX and monitor 2) go to OR for I&D. He stated it is not working now and he wants to go to the OR. I did tell him that unfortunately I would have to go right through his tattoo and he stated he didn't care. I also told him that the US from today did not show obvious abscess, so surgery might not change anything and he understood. All quesions answered to his satisfaction. DILSHAD ENRIQUEZ DO Jul 13, 2020 14:40
--- NOTE | 2020-07-13 15:32 | Progress Note-Post Operative ---
Post-Operative Progess Note Surgeon (s)/Vice President Tax (s) Surgeon DILSHAD ENRIQUEZ DO Vice President Tax: none Pre-Operative Diagnosis right arm cellulitis vs abscess Post-Operative Diagnosis right arm abscess Procedure & Operative Findings Date of Procedure 07/13/20 Procedure Performed/Findings I&D right forearm with iodophor packing Anesthesia Type LMA Estimated Blood Loss Estimated blood loss (mL): less than 20 ml Specimens/Packing Specimens Removed purulent fluid clx Packin/2" iodophor packing DILSHAD ENRIQUEZ DO Jul 13, 2020 15:32
[2020-07-13] MEDS ORDERED: MEPERIDINE (DEMEROL) INJ 50 MG/ML IVP ONE (15:45)
[2020-07-13] MEDS ORDERED: ONDANSETRON 4 MG/2 ML (SDV) Z0FRAN IVP PRN (15:45)
[2020-07-13] MEDS ORDERED: PROMETHAZINE INJ 25 MG/ML (PHENERGAN) AMP IVP ONE (15:45)
[2020-07-13] MEDS ORDERED: fentaNYL INJ 100 MCG/2 ML AMP IVP ONE (15:45)
--- NOTE | 2020-07-13 16:16 | Anesthesia-General Post-Op ---
General Patient Condition Mental Status/LOC: Same as Preop Cardiovascular: Satisfactory Nausea/Vomiting: Absent Respiratory: Satisfactory Pain: Controlled Complications: Absent Post Op Complications Complications None Follow Up Care/Instructions Patient Instructions None needed. Anesthesia/Patient Condition Patient Condition Patient is doing well, no complaints, stable vital signs, no apparent adverse anesthesia problems. No complications reported per nursing. ELLYN WHITMORE CRNA Jul 13, 2020 16:16
[2020-07-13] MEDS: cefTRIAXone 1,000 MG/SWFI 10 ML IV PUSH IV SCH ×2 (18:02)
[2020-07-13] MEDS: ENOXAPARIN 40 MG/0.4 ML (LOVENOX) SYR SC SCH (19:29)
[2020-07-13] MEDS: IBUPROFEN 600 MG (MOTRIN) TAB PO PRN (19:36)
--- NOTE | 2020-07-13 20:31 | OPERATIVE REPORT ---
DATE OF SERVICE: PREOPERATIVE DIAGNOSIS: Right arm cellulitis versus abscess. POSTOPERATIVE DIAGNOSIS: Right arm abscess. SURGEON: Nito Cowan DO. CONTINUOUS MINER OPERATOR HELPER: None. ANESTHESIA: LMA. SPECIMEN: Right arm abscess. BLOOD LOSS: Less than ____ mL. FLUIDS: Per anesthesia. POSTOPERATIVE CONDITION: Stable. INDICATION FOR PROCEDURE: The patient is a 30-year-old male, who had a right arm looked like cellulitis that has been getting progressively worse, but CT and ultrasound showed no obvious fluid collection, but because it was worse, on discussion with the patient, he wanted to have this ____. FINDINGS: The patient had abscess in the right arm just below the antecubital fossa. PROCEDURE NOTE: After informed consent was obtained, the arm was marked. A timeout was performed. The patient was taken to the operating room and sterilely prepped and draped in a normal fashion. I made an incision just below the antecubital fossa with a #15 blade, carried down to the skin into subcutaneous tissue, immediately got out purulent fluid. This was cultured and then sent to pathology. I then used my finger to bluntly break up the loculations, went down towards the right thumb about 6 cm on the medial aspect towards the pinky and went down about 5 cm and then went up on either side about 2 to 3 cm, got out more purulent fluid and then at this point, copiously irrigated with normal saline. I used Bovie electrocautery to stop some of the bleeding from the edge of the skin and then packed this entire area with almost a full bottle of half inch iodoform packing. Area was cleaned and dried and pressure dressing placed. The patient tolerated the procedure. Sponge, instrument and needle count correct at the end of the case. Job ID: [id number] DocumentID: [id number] Dictated Date: 07/13/2020 15:31:19 Motor Carrier Inspector Date: 07/13/2020 20:30:52 Dictated By: NITO COWAN DO
[2020-07-14] MEDS: NS IV 1000 ML 1,000 ML IV SCH ×3 (02:07→21:53)
[2020-07-14 04:12] VITALS: BP 105/67
[2020-07-14] MEDS: morphine INJ 4 MG/ML 1 ML (VIAL/SYRINGE) IVP PRN ×3 (04:56→14:41)
[2020-07-14] MEDS: IBUPROFEN 600 MG (MOTRIN) TAB PO PRN ×2 (04:56→15:17)
[2020-07-14 07:47] VITALS: BP 118/71
[2020-07-14] MEDS: LACTOBACILLUS ACIDOPHILUS (PROBIOTIC) CAPSULE PO SCH ×3 (09:58→17:10)
[2020-07-14] MEDS ORDERED: TROUGH ORDER-PHARMACY XX ONE (10:00)
[2020-07-14 10:31] LABS: BASOPHILS % (AUTO) 1 % (0-10); EOSINOPHILS # (AUTO) 0.3 10^3/uL (0.0-0.3); EOSINOPHILS % (AUTO) 6 % (0-10); HEMATOCRIT 37 % (40-54); HEMOGLOBIN 12.2 g/dL (13.3-17.7); LYMPHOCYTES # (AUTO) 1.6 10^3/uL (1.0-4.0); LYMPHOCYTES % (AUTO) 28 % (12-44); MEAN CORPUSCULAR HEMOGLOBIN 30 pg (25-34); MEAN CORPUSCULAR HGB CONC 33 g/dL (32-36); MEAN CORPUSCULAR VOLUME 88 fL (80-99); MEAN PLATELET VOLUME 9.8 fL (9.0-12.2); MONOCYTES # (AUTO) 0.5 10^3/uL (0.0-1.0); MONOCYTES % (AUTO) 8 % (0-12); NEUTROPHILS # (AUTO) 3.3 10^3/uL (1.8-7.8); NEUTROPHILS % (AUTO) 57 % (42-75); PLATELET COUNT 231 10^3/uL (130-400); WHITE BLOOD COUNT 5.8 10^3/uL (4.3-11.0)
[2020-07-14] MEDS ORDERED: diphenhydrAMINE 25 MG TAB (BENADRYL) PO ONE (10:45)
[2020-07-14 10:52] LABS: CHLORIDE 106 MMOL/L (98-107); POTASSIUM 3.5 MMOL/L (3.6-5.0); SODIUM 136 MMOL/L (135-145)
[2020-07-14 10:53] LABS: CALCIUM 7.9 MG/DL (8.5-10.1)
[2020-07-14 10:54] LABS: GLUCOSE 171 MG/DL (70-105)
[2020-07-14 10:55] LABS: CARBON DIOXIDE 22 MMOL/L (21-32)
[2020-07-14 10:58] LABS: CREATININE SERUM 0.68 MG/DL (0.60-1.30); GFR ESTIMATED > 60
[2020-07-14 10:59] LABS: BUN/CREATININE RATIO 7
[2020-07-14 11:06] LABS: VANCOMYCIN,TROUGH 8.5 UG/ML (10.0-20.0)
[2020-07-14 11:30] VITALS: BP 119/79
[2020-07-14] MEDS: VANCOMYCIN 1500 MG/NS 500 ML IVPB IV SCH ×2 (11:36)
--- NOTE | 2020-07-14 14:55 | Progress Note - Hospitalist ---
Subjective HPI/CC On Admission Date Seen by Provider: Jul 14, 2020 Time Seen by Provider: 10:35 Pt is a 30yoCM with a PMH of Hepatits C, IV meth use and recurrent MRSA infection who presented to the ER due to right arm infection. He states he was in [place] recently and left AMA because they treated him "horribly" and his infection continued to worsen prompting him to seek evaluation here. He states he still has pain in his right arm and feels terrible. He also complains about a headache that he has had for 4 days. He normally drinks a lot of pop but hasn't had any. Denies any cuts, bug bite, or other sources of infection when specifically asked but when asking about MRSA decolinizatino process he discloses that he got a tattoo his arm just under the area of erythema and infection 2 days prior to this starting. Subjective/Events-last exam His arm feels better today. The pain is improved. He has some itching on his arm. He denies fevers and chills. Objective Exam Vital Signs Vital Signs Date Time Temp Pulse Resp B/P (MAP) Pulse Ox O2 Delivery O2 Flow Rate FiO2 07/14/20 11:30 36.3 87 18 119/79 (92) 97 Room Air 07/13/20 16:05 3 Capillary Refill : Less Than 3 SecondsLess Than 3 Seconds General Appearance: No Apparent Distress, WD/WN Respiratory: Lungs Clear, Normal Breath Sounds, No Respiratory Distress Cardiovascular: Regular Rate, Rhythm, No Edema, No Murmur Gastrointestinal: Normal Bowel Sounds, Non Tender, Soft Extremity: Non Tender, No Pedal Edema, Other (right forearm with bandage in place) Neurologic/Psychiatric: Alert, Oriented x3, No Motor/Sensory Deficits, Normal Mood/Affect Skin: Warm/Dry, Rash (right arm) Results/Procedures Lab Laboratory Tests 07/14/20 10:20 Patient resulted labs reviewed. Imaging: Reviewed Imaging Report Assessment/Plan Assessment and Plan Assess & Plan/Chief Complaint Sepsis due to cellulitis Left forearm abscess Surgery consulted, appreciate assistance No abscess seen on CT or US imaging I&D revealed large abscess which was drained and packed Culture pending Continue Vancomycin and Rocephin IV methamphetamine use Hepatitis C Recommend cessation Will need outpatient hepatology follow up government services professional consult DVT prophylaxis: Lovenox Diagnosis/Problems Diagnosis/Problems (1) Abscess of right arm Status: Acute (2) Sepsis due to cellulitis Status: Acute (3) IV drug abuse Status: Acute (4) Hepatitis C Status: Acute ROBBY JIMENEZ MD Jul 14, 2020 14:55
--- NOTE | 2020-07-14 16:56 | Progress Note - Surgery ---
Subjective Time Seen by a Provider: 11:46 Subjective/Events-last exam Pt seen and examined at 11:46 and then Maria Isabel barcenas went back to see him around 16:30. He was doing fine earlier, but around 3-4pm he had some hand pain; needing meds. No other complaints and is eating full meals. Review of Systems General: No Chills, No Night Sweats Pulmonary: No Dyspnea, No Cough Cardiovascular: No: Chest Pain, Palpitations Musculoskeletal: arm pain (right) Objective Exam Vital Signs Date Time Temp Pulse Resp B/P (MAP) Pulse Ox O2 Delivery O2 Flow Rate FiO2 07/14/20 11:30 36.3 87 18 119/79 (92) 97 Room Air 07/14/20 07:47 36.0 73 17 118/71 (87) 97 Room Air 07/14/20 07:30 Room Air 07/14/20 04:12 35.9 71 16 105/67 (80) 95 Room Air 07/13/20 23:05 36.1 84 16 109/63 (78) 94 Room Air 07/13/20 19:45 Room Air 07/13/20 19:10 36.9 93 18 126/89 (101) 99 Room Air I & O 07/14/20 07:00 Intake Total 350 ml Balance 350 ml Capillary Refill : Less Than 3 SecondsLess Than 3 Seconds General Appearance: No Apparent Distress, WD/WN HEENT: No Scleral Icterus (L), No Scleral Icterus (R) Respiratory: Lungs Clear, Normal Breath Sounds, No Respiratory Distress Cardiovascular: Regular Rate, Rhythm, No Murmur Peripheral Pulses: 2+ Radial Pulses (R), 2+ Radial Pulses (L) Gastrointestinal: normal bowel sounds, non tender, soft Extremity: Other (right forearm with bandage in place, still a lot of edema, erythema about the same) Neurologic/Psychiatric: Alert, Oriented x3, No Motor/Sensory Deficits (right hand) Results Lab Laboratory Tests 07/14/20 10:20: White Blood Count 5.8, Red Blood Count 4.14L, Hemoglobin 12.2L, Hematocrit 37L, Mean Corpuscular Volume 88, Mean Corpuscular Hemoglobin 30, Mean Corpuscular Hemoglobin Concent 33, Red Cell Distribution Width 11.7, Platelet Count 231, Mean Platelet Volume 9.8, Immature Granulocyte % (Auto) 0, Neutrophils (%) (Auto) 57, Lymphocytes (%) (Auto) 28, Monocytes (%) (Auto) 8, Eosinophils (%) (Auto) 6, Basophils (%) (Auto) 1, Neutrophils # (Auto) 3.3, Lymphocytes # (Auto) 1.6, Monocytes # (Auto) 0.5, Eosinophils # (Auto) 0.3, Basophils # (Auto) 0.0, Immature Granulocyte # (Auto) 0.0, Sodium Level 136, Potassium Level 3.5L, Chloride Level 106, Carbon Dioxide Level 22, Anion Gap 8, Blood Urea Nitrogen 5L , Creatinine 0.68, Estimat Glomerular Filtration Rate > 60, BUN/Creatinine Ratio 7, Glucose Level 171H, Calcium Level 7.9L, Vancomycin Level Trough 8.5L Microbiology 07/13/20 Gram Stain - Final, Resulted 07/13/20 Anaerobic Culture, Resulted Pending 07/13/20 Surgical Culture - Preliminary, Resulted No growth 07/13/20 MRSA Screen - Final, Complete MRSA not isolated 07/10/20 Blood Culture - Preliminary, Resulted No growth Assessment/Plan Assessment/Plan Assessment/Plan S/P I&D of Right arm Abscess -waiting on cultures to start on narrower spectrum ABX, will unwrap arm (take coban off) and place loose ade wrap. Plan to take out packing tomorrow, repack and then probably send home on oral ABX and pain DILSHAD Preston DO Jul 14, 2020 16:56
[2020-07-14 16:57] VITALS: BP 117/76
[2020-07-14] MEDS: VANCOMYCIN 2000 MG/NS 500 ML IVPB IV SCH ×2 (17:01)
[2020-07-14] MEDS: cefTRIAXone 1,000 MG/SWFI 10 ML IV PUSH IV SCH ×2 (17:01)
[2020-07-14] MEDS: LORazepam INJ 2 MG/ML (ATIVAN) VIAL IVP PRN ×2 (17:10→21:13)
[2020-07-14] MEDS ORDERED: diphenhydrAMINE 25 MG TAB (BENADRYL) PO PRN (17:15)
[2020-07-14] MEDS ORDERED: MELATONIN 3 MG TABLET PO PRN (17:15)
[2020-07-14] MEDS ORDERED: polyethylene glycoL POWDER 17 GM (MIRALAX) PACK PO PRN (17:15)
[2020-07-14] MEDS ORDERED: ONDANSETRON 4 MG/2 ML (SDV) Z0FRAN IV PRN (17:15)
[2020-07-14] MEDS ORDERED: ANTACID SUSP 30 ML UDC (MYLANTA) PO PRN (17:15)
[2020-07-14] MEDS ORDERED: ONDANSETRON 4 MG (ZOFRAN) ORAL DISSOLVE TAB PO PRN (17:15)
[2020-07-14] MEDS ORDERED: ACETAMINOPHEN 325 MG TABLET PO PRN (17:15)
[2020-07-14] MEDS ORDERED: MILK OF MAGNESIA 400 MG/5 ML 30 ML UDC PO PRN (17:15)
[2020-07-14 20:00] VITALS: BP 125/80
[2020-07-14] MEDS: ENOXAPARIN 40 MG/0.4 ML (LOVENOX) SYR SC SCH (21:25)
[2020-07-15 00:59] VITALS: BP 115/69
[2020-07-15] MEDS: NS IV 1000 ML 1,000 ML IV SCH ×2 (01:06→11:23)
[2020-07-15 04:56] VITALS: BP 135/88
[2020-07-15] MEDS: VANCOMYCIN 2000 MG/NS 500 ML IVPB IV SCH ×2 (05:18)
[2020-07-15 08:00] VITALS: BP 113/75
[2020-07-15] MEDS: LACTOBACILLUS ACIDOPHILUS (PROBIOTIC) CAPSULE PO SCH ×2 (08:31→11:51)
[2020-07-15] MEDS ORDERED: SULF1TAB35 PO (10:59)
[2020-07-15] MEDS ORDERED: AMOX-358 PO (10:59)
[2020-07-15 12:00] VITALS: BP 125/84
--- NOTE | 2020-07-15 12:45 | Discharge Summary ---
Discharge Summary Hospital Course Was the Problem List Reviewed?: Yes Problems/Dx: (1) Abscess of right arm Status: Acute (2) Sepsis due to cellulitis Status: Acute (3) IV drug abuse Status: Acute (4) Hepatitis C Status: Acute Hospital Course Date of Admission: Jul 10, 2020 at 18:21 Admission Diagnosis: Sepsis due to cellulitis and right forearm abscess Family Physician/Provider: Betty,Local Physician Date of Discharge: 07/15/20 Discharge Diagnosis: Sepsis due to cellulitis and right forearm abscess Hospital Course: Alber Chacon III is a 30-year-old male who was admitted with sepsis due to cellulitis and abscess of his right forearm. He was started on IV antibiotics. Initial imaging did not reveal an abscess. Surgery was consulted and assisted with his care. Due to worsening swelling and induration he was taken for incision and drainage and was found to have a large abscess. Surgical cultures did not identify a bacterial source for his abscess. He was prescribed a course of Bactrim and Augmentin on discharge due to his history of IV drug abuse. Social work was consulted and provided resources to help with quitting. He also reportedly has hepatitis C and was encouraged to establish care with a hepato logist to receive treatment after he quits using drugs. He was discharged home in stable condition. Labs and Pending Lab Test: Microbiology 07/13/20 Gram Stain - Final, Resulted 07/13/20 Anaerobic Culture - Preliminary, Resulted No anaerobes isolated 07/13/20 Surgical Culture - Preliminary, Resulted No growth 07/13/20 MRSA Screen - Final, Complete MRSA not isolated 07/10/20 Blood Culture - Preliminary, Resulted No growth Home Meds Active Augmentin 875-125 Tablet (Amoxicillin/Potassium Clav) 1 Each Tablet 1 Each PO BID 7 Days Bactrim Ds Tablet (Sulfamethoxazole/Trimethoprim) 1 Each Tablet 1 Each PO BID 7 Days Assessment/Pt Instructions Take medications as prescribed. Establish care with a primary care doctor. Complete your course of antibiotics even if you are feeling better. Return with worsening symptoms. Discharge Planning: >30 minutes discharge planning Discharge Instructions Discharge Diet: No Restrictions Activity as Tolerated: Yes Discharge Physical Examination Vital Signs Vital Signs Date Time Temp Pulse Resp B/P (MAP) Pulse Ox O2 Delivery O2 Flow Rate FiO2 07/15/20 12:00 36.7 97 18 125/84 (98) 99 Room Air 3/29/21 16:05 3 General Appearance: No Apparent Distress, WD/WN Respiratory: Lungs Clear, Normal Breath Sounds, No Respiratory Distress Cardiovascular: Regular Rate, Rhythm, No Edema, No Murmur Gastrointestinal: Normal Bowel Sounds, Non Tender, Soft Extremity: Non Tender, No Pedal Edema Skin: Other (Right forearm wound with bandage in place) Neurologic/Psychiatric: Alert, Oriented x3, No Motor/Sensory Deficits, Normal Mood/Affect Allergies: Coded Allergies: No Known Drug Allergies (Unverified , 07/10/20) Discharge Summary Date of Admission Jul 10, 2020 at 18:21 Date of Discharge Discharge Date: Jul 15, 2020 Discharge Time: 12:41 Admission Diagnosis Cellulitis Consults/Procedures Consulations General Surgery Procedures I&D Discharge Diagnosis Sepsis due to cellulitis Right forearm abscess (1) Abscess of right arm Status: Acute (2) Sepsis due to cellulitis Status: Acute (3) IV drug abuse Status: Acute (4) Hepatitis C Status: Acute ROBBY JIMENEZ MD Jul 15, 2020 12:44
--- NOTE | 2020-07-15 14:11 | Progress Note - Surgery ---
Subjective Time Seen by a Provider: 13:54 Subjective/Events-last exam Pt seen and examined, took down dressing and removed packing. Pt complaint of itching and pain, not worse or new. Review of Systems Pulmonary: No Dyspnea, No Cough Cardiovascular: No: Chest Pain, Palpitations Gastrointestinal: No: Nausea, Vomiting, Abdominal Pain Objective Exam Vital Signs Date Time Temp Pulse Resp B/P (MAP) Pulse Ox O2 Delivery O2 Flow Rate FiO2 07/15/20 12:00 36.7 97 18 125/84 (98) 99 Room Air 07/15/20 08:00 Room Air 07/15/20 08:00 36.3 86 16 113/75 (88) 98 Room Air 07/15/20 04:56 88 18 135/88 (104) 100 Room Air 07/15/20 00:59 36.4 86 18 115/69 (84) 98 Room Air 07/14/20 20:55 Room Air 07/14/20 20:00 36.9 89 18 125/80 (95) 100 Room Air 07/14/20 16:57 36.6 107 18 117/76 (90) 99 Room Air I & O 07/15/20 07:00 Intake Total 1845 ml Balance 1845 ml Capillary Refill : Less Than 3 SecondsLess Than 3 Seconds General Appearance: No Apparent Distress, WD/WN HEENT: No Scleral Icterus (L), No Scleral Icterus (R) Respiratory: Lungs Clear, Normal Breath Sounds, No Respiratory Distress Cardiovascular: Regular Rate, Rhythm, No Murmur Peripheral Pulses: 2+ Radial Pulses (R), 2+ Radial Pulses (L) Gastrointestinal: normal bowel sounds, non tender, soft Skin: Other (Right forearm wound with no bleeding and minimal erythema, upper arm no edema, but +2-3 edema in hand) Results Lab Microbiology 07/13/20 Gram Stain - Final, Resulted 07/13/20 Anaerobic Culture - Preliminary, Resulted No anaerobes isolated 07/13/20 Surgical Culture - Preliminary, Resulted No growth 07/13/20 MRSA Screen - Final, Complete MRSA not isolated 07/10/20 Blood Culture - Preliminary, Resulted No growth Assessment/Plan Assessment/Plan Assessment/Plan S/P I&D of Right arm Abscess -nurse to repack with iodophor, pt to f/u in my office monday for packing change. Pt told to elevate arm and massage hand towards elbow to help get rid of some of the edema. DILSHAD ENRIQUEZ DO Jul 15, 2020 14:11
[2020-07-15] MEDS ORDERED: ACHYD1T PO (14:12)
--- NOTE | 2020-07-15 14:13 | Discharge Inst-Surgical ---
Discharge Inst-Surgical Depart Medication/Instructions New, Converted or Re-Newed RX: RX Given to Pt/Family Patient Instructions Follow up Appt: Make appointment for 1 week. [phone] Instructions: No lifting greater than 20 pounds. No strenuous activity. May shower in 24 hours, no tub bath or soaking. Use incentive spirometer at home as directed. No Smoking Skin/Wound Care: You need to leave the packing in place and come to my office Monday to have it changed. Symptoms to Report: Appetite Changes, Extremity Discoloration, Numbness/Tingling, Swelling Increased, Bleeding Excessive, Eyesight Changes, Pain Increased, Urine Color Change, Constipation(Persistent), Fever over 101 degree F, Pain/Pressure in chest, Urinating Difficulty, Cough Up/Vomit Blood, Heart Beat Irreg/Pounding, Pain/Pressure in jaw, Cramps in feet or legs, Lightheadedness, Pain/Pressure in shoulder, Diarrhea(Persistent), Memory Changes Suddenly, Questions/Concerns, Weight gain consecutive days, Dizziness/Fainting, Nausea/Vomiting, Shortness of Breath, Weight gain over 2 pounds If questions or concerns contact your physician Or seek help at emergency department. Activity Activity as Tolerated: Yes Activity Instructions: Avoid Stress to Incision Driving Instructions: No Driving/Refer to Dr. Zimmerman Discharge Diet: No Restrictions Diet After 24 Hours: Clear Liquid if Nauseous If Any Problems/Questions/Issu: Contact Your Physician, Go to Emergency Room Skin/Wound Care Infection Signs and Symptoms: Increased Redness, Foul Odor of Wound, Increased Drainage, Skin Itchy or Has a Rash, Increased Swelling, Temperature Above 101 F Bathing Instructions: DILSHAD Figueroa DO Jul 15, 2020 14:13
== END 2020-07-15 14:24 | disposition home or self-care (01) | DRG 854 ==
LOC: ER 17:12 → 4TH 18:21
PROVIDERS: ADMIT Family Medicine; ATTEND Internal Medicine
PROC: 0J9G0ZZ Drainage of Right Lower Arm Subcutaneous Tissue and Fascia, Open Approach (ICD-10-PCS; principal; 2020-07-13 15:03)
DX: A41.9 Sepsis, unspecified organism (principal); L03.113 Cellulitis of right upper limb; L02.413 Cutaneous abscess of right upper limb; Z86.14 Personal history of Methicillin resistant Staphylococcus aureus infection; F15.10 Other stimulant abuse, uncomplicated; B19.20 Unspecified viral hepatitis C without hepatic coma; F17.210 Nicotine dependence, cigarettes, uncomplicated; Z90.49 Acquired absence of other specified parts of digestive tract; R51.9 Headache, unspecified
CPT/HCPCS: 36415; 73201; 76881; 80048; 80053; 80202; 83605; 83735; 85025; 85610; 87040; 87070; 87075; 87081; 87205; 96361; 96374; 96375